=== PATIENT | female | born 1980 | race American Indian/Alaskan Native ===

== ENCOUNTER 2018-01-21 09:53 | Emergency (ER) | payer BC, MEDICAID ==
[2018-01-21 10:38] VITALS: BP 114/74
== END 2018-01-21 11:40 | disposition left against medical advice (07) ==
LOC: ED 09:53
DX: M25.531 Pain in right wrist (principal); Z53.21 Procedure and treatment not carried out due to patient leaving prior to being seen by health care provider

== ENCOUNTER 2021-07-18 14:28 | Outpatient (CLI) | payer BC ==
--- NOTE | 2021-07-18 15:25 | XRay Report ---
RIGHT SHOULDER 3 VIEW(S) INDICATION / CLINICAL INFORMATION: PAIN IN RIGHT SHOULDER, PAIN IN LEFT SHOULDER COMPARISON: None available. FINDINGS: BONES / JOINT(S): No acute fracture or subluxation. No significant arthritis. SOFT TISSUES: No significant abnormality. ADDITIONAL FINDINGS: None. LEFT SHOULDER 3 VIEW(S) INDICATION / CLINICAL INFORMATION: PAIN IN RIGHT SHOULDER, PAIN IN LEFT SHOULDER COMPARISON: None available. FINDINGS: BONES / JOINT(S): No acute fracture or subluxation. No significant arthritis. SOFT TISSUES: No significant abnormality. ADDITIONAL FINDINGS: None. Signer Name: Vince Mckee MD Signed: 07/18/2021 3:20 PM Workstation Name: [id number]
== END 2021-07-18 14:29 | disposition home or self-care (01) ==
LOC: XRAY 14:28
PROVIDERS: ATTEND Pediatrics
DX: M25.511 Pain in right shoulder (principal); M25.512 Pain in left shoulder